=== PATIENT | male | born 2005 ===

== ENCOUNTER 2023-09-22 08:34 | Outpatient (CLI) | payer OTHER, SELFPAY ==
--- NOTE | 2023-09-22 09:13 | DI.RAD_ITS ---
Exam(s) XR HIP RT COMPLETE AP PELVIS EXAM: XR HIP RT COMPLETE AP PELVIS CLINICAL HISTORY: RIGHT HIP PAIN. TECHNIQUE: 2D digital imaging was performed. COMPARISON: No exams were available for comparison FINDINGS: 3 views No evidence of pelvic nor hip fracture. No hip joint space narrowing. No evidence of developmental dysplasia. However, there appears to be subtle developmental variant in the appearance of the right femoral head epiphysis when compared to the more normal appearing left side. No significant osseous lesions. 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 Recommend follow-up MRI. DATA REPOSITORY: RADIATION DOSE DELIVERED:
== END 2023-09-22 08:35 | disposition home or self-care (01) ==
LOC: DIORS 08:34
PROVIDERS: Visit Provider Student in an Organized Health Care Education/Training Program
DX: M25.551 Pain in right hip (principal); R93.89 Abnormal findings on diagnostic imaging of other specified body structures
CPT/HCPCS: 73502